=== PATIENT | male | born 2005 | race Caucasian/White ===

== ENCOUNTER 2024-01-11 10:22 | Emergency (ER) | payer OTHER ==
[~2024-01-11] VITALS: Ht 175.3 cm; Wt 61.0 kg
[2024-01-11 10:31] VITALS: BP 134/88; PULSE 70; RESP 16; TEMP 97.7; O2SAT 99
[2024-01-11] MEDS: LIDOcaine 5% patch TP STA (11:58)
== END 2024-01-11 12:05 | disposition home or self-care (01) ==
LOC: ER 10:22
DX: R10.13 Epigastric pain (principal)
CPT/HCPCS: 99282; 99283

== ENCOUNTER 2025-07-25 15:29 | Emergency (ER) | payer MEDICAID ==
[~2025-07-25] VITALS: Ht 175.3 cm; Wt 66.8 kg
--- NOTE | 2025-07-25 15:59 | Physician Documentation ---
History of Present Illness ~ Stated Complaint: RECHECK SORE THROAT Time Seen by MD: 16:13 OK to notify your PCP?: Yes Source: patient Mode of Arrival: POV Exam Limitations: no limitations HPI 20-year-old male presents with severe sore throat and unable to open his mouth or talk since Saturday. He did have 1 Advil this morning but is having difficulty with eating or swallowing. He says that the pain feels deep on the inside. He does have some tenderness when touching the left side of his neck. Also having some left ear pain, but he thinks this may be due to using a Q-tip to deep. He is not having any muffled hearing or hearing changes in that left ear. Medication Reconciliation Allergies: Coded Allergies: No Known Allergies (Unverified , 01/11/24) Past Medical History Past Medical History: No Pertinent History Past Surgical History: noncontributory Lives with: Family Lives In: Home Review of Systems All Other Systems at this time: Reviewed and Negative Physical Exam Vital Signs: RN Vital Signs have been reviewed: Yes Pulse Oximetry Reflects: adequate oxygenation Physical Exam General: Alert, no apparent distress. HEENT: PERRL, EOMI, no injection, moist mucous membranes. Bilateral ear canals and tympanic membranes are intact and normal. Unable to open mouth more than 2- 3 cm, unable to visualize posterior pharynx or uvula or tonsils. Neck: Full range of motion. Tenderness to palpation of left anterior neck. Pre-auricular as well as anterior cervical lymphadenopathy. Respiratory: Lungs clear, no respiratory distress. Chest: No accessory muscle use. Cardiovascular: Regular rate and rhythm, no murmurs. Gastrointestinal: Soft, nontender, nondistended. Bowels sounds present. Extremities: Normal range of motion, no deformity. Neurologic: Oriented x4. Psychiatric: Normal mood and affect. Skin: Normal color, warm and dry. No edema, no ecchymosis. Progress Progress Note 2042: Dr. Zarate, ENT, accepts patient for ER to ER transfer to [facility]. He reports that he plans on draining this abscess at the bedside and if not he will take the patient to the OR tonight. Has no further treatment recommendations from my standpoint. I relayed this information to the patient and his mother and we are looking to set up transport. He is currently resting comfortably. Results/Orders Reviewed/noted all lab results: Yes Results/Orders Orders - OKSANA GEE [facility] Ct Neck Soft Tissues (07/25/25 16:03) Urinalysis, Cult If Indicated (07/25/25 16:57) Culture Blood (07/25/25 16:57) Chest,Single View (07/25/25 17:30) Completed Orders - OKSANA GEE [facility] Ct Neck Soft Tissues (07/25/25 16:03) Dexamethasone Inj (Decadron 10mg/Ml Inj) (07/25/25 16:06) Cbc/Diff (07/25/25 16:07) BMP (07/25/25 16:07) Ibuprofen Tablet (Motrin Tablet) (07/25/25 16:10) Ketorolac Trometh 15mg/Ml Vial (Toradol (07/25/25 16:45) Iohexol 300mg/Ml 100ml Inj. (Omnipaque-3 (07/25/25 17:06) Electrocardiogram (07/25/25 16:57) Chest,Single View (07/25/25 17:30) Procalcitonin (07/25/25 16:57) Lacticsepsis (07/25/25 16:57) Normal Saline 1000ml (0.9% Sodium Chlori (07/25/25 17:00) Piperacillin/Tazo 3.375gm/50ml (Zosyn 3. (07/25/25 17:00) MG (07/25/25 16:18) Morphine 4mg/Ml Inj. (Morphine Inj.) (07/25/25 19:15) Ondansetron Inj. (Zofran 4mg/2ml Vial) (07/25/25 19:15) Medications Received in ER Medications (Trade) Dose Ordered Sig/Nathalia Route PRN Reason Start Time Stop Time Status Last Admin Dose Admin (Decadron 10mg/ ml inj) 10 mg ONCE STAT IV 07/25/25 16:06 07/25/25 16:09 DC 07/25/25 17:36 10 MG (Toradol injection) 15 mg ONCE ONCE IV 07/25/25 16:45 07/25/25 16:46 DC 07/25/25 17:39 15 MG Sodium Chloride 2,000 ml @ 666.666 mls/hr ONCE ONCE IV 07/25/25 17:00 07/25/25 20:00 DC 07/25/25 17:39 666.666 MLS/HR Piperacillin/ Tazobactam/ Dextrose 50 ml @ 100 mls/hr ONCE ONCE IV 07/25/25 17:00 07/25/25 17:29 DC 07/25/25 17:47 100 MLS/HR (morphine inj.) 4 mg ONCE ONCE IV 07/25/25 19:15 07/25/25 19:19 DC 07/25/25 19:27 4 MG (Zofran 4mg/2ml vial) 4 mg ONCE ONCE IV 07/25/25 19:15 07/25/25 19:19 DC 07/25/25 19:23 4 MG Vital Signs 07/25/25 07/25/25 07/25/25 07/25/25 15:50 16:27 16:50 17:51 Temp 99.4 Pulse 106 89 93 Resp 16 18 16 B/P (MAP) 137/88 134/82 (99) 124/75 (91) Pulse Ox 96 96 96 O2 Flow Rate 0 0 07/25/25 07/25/25 07/25/25 07/25/25 18:38 19:27 20:00 21:18 Temp 99.0 Pulse 82 68 86 Resp 12 17 14 16 B/P (MAP) 113/76 (88) 110/75 (87) Pulse Ox 96 98 96 O2 Flow Rate 0 Laboratory Tests Test 07/25/25 16:18 07/25/25 17:57 White Blood Count 17.3 H Red Blood Count 5.17 Hemoglobin 16.8 Hematocrit 47.9 Mean Corpuscular Volume 92.5 Mean Corpuscular Hemoglobin 32.5 H Mean Corpuscular Hemoglobin Concent 35.2 Red Cell Distribution Width 12.7 Platelet Count 333 Mean Platelet Volume 8.2 Neutrophils (%) (Auto) 80.7 H Lymphocytes (%) (Auto) 7.5 L Monocytes (%) (Auto) 11.3 Eosinophils (%) (Auto) 0.2 Basophils (%) (Auto) 0.3 Neutrophils # (Auto) 13.9 H Lymphocytes # (Auto) 1.3 Monocytes # (Auto) 2.0 H Eosinophils # (Auto) 0.0 Basophils # (Auto) 0.1 CBC Comment Sodium Level 137 Potassium Level 3.8 Chloride Level 99 Carbon Dioxide Level 26.9 Anion Gap 11 Blood Urea Nitrogen 13 Creatinine 0.88 Estimated GFR/1.73 m2 > 90 BUN/Creatinine Ratio 14.8 Glucose Level 104 Calcium Level 9.8 Magnesium Level 2.3 Albumin 4.0 Procalcitonin < 0.05 Chemistry Comments Lactic Acid Level 0.8 Microbiology Date/Time Source Procedure Growth Status 07/25/25 18:46 Blood Arm Left Blood Culture - Preliminary NEGATIVE (LESS THAN 24 HOURS) Resulted EKG/XRAY/CT/US/VASC/MRI EKG : Additional Comment Electrocardiogram: as interpreted by me; normal sinus rhythm, no axis deviation, no acute ischemia, normal intervals, no pre-excitation pattern. Rate: 84. Chest X-Ray : Additional Comments Chest x-ray: as interpreted by me; no large effusion, no large infiltrate, normal mediastinum. CT : Impression CT neck soft tissues with contrast as interpreted by me: Prominent bilateral cervical lymph nodes. Left-sided peritonsillar abscess measuring 3.1 x 1.8 x 3 cm. Edema to left neck soft tissues. Medical Decision Making Additional info obtained from: old records, family Findings He is experiencing significant trismus as well as difficulty swallowing, unable to talk and I am unable to fully visualize the posterior pharynx or tonsils. He is tachycardic during triage at 106 beats per minute but afebrile. He has bi lateral lymph node enlargement of preauricular lymph nodes as well as anterior cervical lymph nodes and he has tenderness to palpation on the left anterior side of his neck. I have ordered a CT with contrast of neck soft tissues to rule out any peritonsillar abscess. I have also ordered a CBC and BMP to check for infection and kidney function. I have ordered dexamethasone to help with swelling which I would prefer to give orally but he states he is unable to swallow so I will give it IV as well as some Toradol IV. CT of his neck reveals prominent left greater than right palatine tonsils with associated left-sided peritonsillar abscess measuring up to 3.1 x 1.8 x 3 cm. He is also having associated edema adjacent to the left side neck soft tissues of the left sided airway. For this I discussed this case with Dr. Burr, who recommends transfer for ENT specialty which we do not currently have. After the dexamethasone and Toradol, he is still unable to fully open his mouth still only can open about 2-3 cm he has a experienced some pain relief with the medication. His WBCs are elevated at 17.3 with left shift and a negative procalcitonin and lactic. He was tachycardic during triage at 106 beats per minute. Due to this I initiated a sepsis protocol with a 2 L normal saline and administration of Zosyn IV. At this point, his vitals have stabilized he will be stable for transfer. Dr. Zarate,ENT, accepts this patient and Dr. Cisneros, ER doc at [facility] accept transfer. Throat Diff Dx: Considerations: Include: Epiglottitis, Infection mononucleosis, Harry's angina, URI Departure Disposition: 04 INTERMEDIATE CARE FACILITY ([facility] for ENT services.) Impression: Primary Impression: Peritonsillar abscess Additional Impression: Neutrophilic leukocytosis Condition: Fair Referrals: NO PRIMARY CARE PROVIDER (PCP) Additional Comment Medical Screen Exam This patient recieved a medical screening examination. After reviewing the individual's medical complaints with presenting symptoms and performing an appropriate physical examination, it was determined that no immediate life- threatening emergency medical condition is present. This individual is also not a women having contractions. Signature Scribe Signature: . Attestation: Scribed for Oksana Geep by Oksana Guerra NP . 07/25/25 22:04 Parts of this note were created using [employer] voice recognition software program. While efforts were made to correct any mistakes made by this voice recognition software program, nonsensical phrases may remain in this note. In addition, there may be errors and syntax, grammar, content and spelling. OKSANA GEEP Jul 25, 2025 15:59
[2025-07-25 16:43] LABS: MEAN PLATELET VOLUME 8.2 FL (7.4-10.4); RED CELL DISTRIBUTION WIDTH 12.7 % (11.5-14.5)
[2025-07-25 16:52] LABS: CREATININE 0.88 MG/DL (0.60-1.10); TOTAL CARBON DIOXIDE 26.9 MMOL/L (24-32); eCRCL 125 ML/MIN; eGFR > 90 ML/MIN
[2025-07-25] MEDS ORDERED: iohexol 300mg/ml 100ml inj. ONE (17:06)
[2025-07-25] MEDS: dexamethasone sod phosphate 10mg/ml inj IV STA (17:36)
[2025-07-25] MEDS: normal saline 1000ml 2,000 ML IV ONE (17:39)
[2025-07-25] MEDS: piperacillin/tazo 3.375gm/50ml 50 ML IV ONE (17:39)
[2025-07-25] MEDS: ketorolac trometh 15mg/ml vial 15 MG/ML ML IV ONE (17:39)
--- NOTE | 2025-07-25 17:49 | RADIOLOGY REPORT ---
Accession Number: [id number] Clinical History: trismus, unable to talk, difficulty swallowing, sore throat Comparison: None Technique: After the intravenous administration of intravenous contrast, multi-slice CT scan of the n farzad was performed without complication. Radiation Dose Information: CT Dose: CTDI volume is 12.9 mGy. Dose-length product is 148.7 cm mGy*cm Findings: Prominence of the Cewv-bdjmxjh-mrmi-right palatine tonsils with associated left-sided peritonsillar a bscess measuring up to 3.1 x 1.8 X 3 cm. There is associated edema of the adjacent left-sided neck s oft tissues. Of the left-sided airway. Prominent bilateral level 2 and 3 lymph nodes measuring up to 1.6 cm which are most likely reactive. The glottis and esophagus unremarkable. Bilaterally, the parotid, submandibular, and sublingual glands are normal in their size, shape, and a ttenuation without evidence of calcification. The visualized oral tongue, tongue base, and floor of mouth regions demonstrate no obvious mass or ab normal enhancement. The thyroid gland is normal in size, shape, and attenuation without evidence of calcification. The lung apices are clear. No evidence of acute osseous abnormalities. Impression: Dude-pkkikhg-vlrp-right palatine tonsillitis with left-sided peritonsillar abscess measuring up to 3. 1 x 1.8 x 3 cm. There is associated edema of the adjacent left neck soft tissues
--- NOTE | 2025-07-25 17:50 | RADIOLOGY REPORT ---
CHEST RADIOGRAPH Indication: SEPSIS Technique: Single frontal view of the chest was obtained Comparison: None FINDINGS: Lines and Tubes: None Lungs: No focal consolidation. Pleura: No effusion. No pneumothorax. Cardiomediastinal contours: Unremarkable Bones: No acute osseous abnormality. IMPRESSION: No acute cardiopulmonary disease.
--- NOTE | 2025-07-25 17:58 | ELECTROCARDIOGRAPH REPORT ---
[facility] Test Date: 2025-07-25 Test Time: 17:56:17 Pat Name: ELLEN CHANEY Department: [facility]- Patient ID: [id number] Room: Gender: M [employer]: : 2005 Requested By: PRADEEP GEE Order Number: [id number] Reading MD: Measurements Intervals [place] Rate: 84 P: 65 SC: 141 QRS: 63 QRSD: 88 T: 33 QT: 351 QTc: 415 Interpretive Statements Sinus rhythm Please click the below link to view image of tracing.
[2025-07-25] MEDS: ondansetron/PF 4mg/2ml inj IV ONE (19:23)
[2025-07-25] MEDS: morphine 4 MG/ML inj SYRINge IV ONE (19:27)
[2025-07-25 21:18] VITALS: TEMP 99
[2025-07-25 22:32] VITALS: BP 110/66; PULSE 74; RESP 16; O2SAT 99
== END 2025-07-25 22:35 ==
LOC: ER 15:29
DX: J36 Peritonsillar abscess (principal); D72.828 Other elevated white blood cell count; I49.8 Other specified cardiac arrhythmias
CPT/HCPCS: 36415; 70491; 71045; 80048; 83605; 83735; 84145; 85025; 87040; 93005; 96361; 96374; 96375; 99285; J1100; J1885; J2270; J2405; J2543; J7030; Q9967